=== PATIENT | female | born 1995 | race Caucasian/White ===

== ENCOUNTER 2020-01-12 14:26 | Emergency (ER) | payer BC, SELFPAY ==
--- NOTE | ~2020-01-12 | US_ITS ---
EXAMINATION: US OB <=14 wk fetus w TV DATE: 01/12/2020 15:44 INDICATION: Lower abdominal tenderness at the seventh week of TECHNIQUE: Real-time pelvic ultrasound utilizing both a transvaginal and transabdominal probe was pe rformed. The interpreting radiologist was not present for the study. COMPARISON: None. FINDINGS: The uterus measures 5.9 x 4.3 x 5.9 cm. There is an intrauterine gestational sac. A yolk sac and fet al pole are identified. The crown rump length measures 7 mm, which correlates with an estimated gesta tional age of 6 weeks and 4 days. heart motion is identified measuring 134 beats per minute (bp m) by M-mode Doppler. 4 x 5 x 3 mm hypoechoic subchorionic hematoma at the right inferior margin of t he gestational sac. The right ovary measures 3.6 x 1.8 x 1.7 cm. The left ovary measures 3.0 x 1.5 x 1.4 cm. Normal vascu lar flow with both arterial and venous waveforms at both ovaries. There is no free fluid in the pelvi s. IMPRESSION: 1. Single living fetus with heart rate of 134 bpm. 2. Gestational age by ultrasound of 6 weeks 4 day(s) +/- 4 day(s) with ultrasound estimated date of delivery (CHAS) of 09/02/2020. 3. Very small subchorionic hematoma. Reviewed, dictated and finalized at location A. [facility] DENTIST IMPRESSION: 1. Single living fetus with heart rate of 134 bpm. 2. Gestational age by ultrasound of 6 weeks 4 day(s) +/- 4 day(s) with ultraso und estimated date of delivery (CHAS) of 09/02/2020. 3. Very small subchorionic hematoma.
[2020-01-12 14:47] VITALS: BP 128/82; PULSE 96; RESP 16; TEMP 36.8; O2SAT 99
--- NOTE | 2020-01-12 14:48 | ED.NAVMDI ---
HPI - Nausea/Vomiting/Diarrhea General Chief complaint: Nausea/Vomiting/Diarrhea Stated complaint: /vomiting Time Seen by Provider: 01/12/20 14:33 Source: patient Mode of arrival: ambulatory Limitations: no limitations History of Present Illness HPI Narrative: This is a 24 year old about 7 weeks from LMP that presents to the ER for nausea and vomiting x 2 days. Reports since Friday she has had a lot of problems with nausea. Reports since yesterday she has been having a lot of vomiting. Reports she has been unable to keep anything down. She was told to start vitamin B6 and Unisom and has ordered these medications, but they have not come in yet. Denies fever, abdominal pain, dysuria, hematuria, vaginal bleeding, or pelvic cramping. Related Data Allergies Allergy/AdvReac Type Severity Reaction Status Date / Time No Known Allergies Allergy Verified 01/12/20 15:11 Review of Systems Review of Systems: Narrative: CONSTITUTIONAL: Denies fever GASTROINTESTINAL: Reports nausea and vomiting. Denies abdominal pain GENITOURINARY: Denies dysuria or hematuria. All systems reviewed & are unremarkable except as noted in HPI and below PMFSH Social History Social History (Updated 01/12/20 @ 14:53 by Maricruz Trivedi PA-C) Smoking status: Never smoker Alcohol intake: former Substance use: former Substance use type: marijuana Exam Narrative: Exam Narrative: GENERAL: Well-appearing, well-nourished, and in no acute distress. HEAD: Normocephalic, atraumatic. EYES: EOMI. CHEST: Clear to auscultation. No respiratory distress. No wheezes rales or rhonchi HEART: Regular rate and rhythm. No murmur heard. Normal peripheral pulses. ABDOMEN: Soft, nontender, nondistended, normal active bowel sounds. EXTREMITIES: Normal range of motion. No edema. SKIN: Warm, dry, no rash. NEURO: No focal deficits. Alert and oriented x3. PSYCH: Normal mood and affect Course Consultations Consultation #1: Spoke with Dr. Cui about patient and work-up. She is to follow-up in clinic and call with any further problems Date: 01/12/20 Time: 16:38 Vital Signs Vital signs: Vital Signs Temperature 98.3 F 01/12/20 14:47 Pulse Rate 96 01/12/20 14:47 Respiratory Rate 16 01/12/20 14:47 Blood Pressure 128/82 01/12/20 14:47 Pulse Oximetry 99 01/12/20 14:47 Temperature 98.3 F 01/12/20 14:47 Pulse Rate 88 01/12/20 15:41 Respiratory Rate 16 01/12/20 14:47 Blood Pressure 140/114 H 01/12/20 15:41 Pulse Oximetry 99 01/12/20 14:47 MDM - Nausea/Vomiting/Diarrhea MDM Narrative Medical decision making narrative: Patient presents to the emergency department for nausea and vomiting, about 7 weeks by her last menstrual period. She is afebrile and nontoxic-appearing. She is not orthostatic. CBC with hemoconcentration. 1+ ketones in the urine. Patient was hydrated while in the ED. Metabolic panel is without acute changes. Patient also given Reglan and Benadryl with relief. She was able to tolerate p.o. challenge. OB ultrasound shows a single living fetus with heart rate of 134. Also shows a very small subchorionic hematoma. Patient denies any vaginal bleeding. Spoke with Dr. Cui about patient and work-up. She is to follow-up in clinic and call with any further problems. She will be started on Unisom and vitamin B6. She will be given Reglan as needed. She is to follow-up with OB. Patient was given warnings to return to the ER Lab Data Attestation: I reviewed the patient's lab results. Result diagrams: 01/12/20 14:56 01/12/20 14:56 Labs: Lab Results 01/12/20 01/12/20 01/12/20 Range/Units 14:55 14:56 14:56 WBC 6.8 (4.5-10.0) K/mm3 RBC 5.25 (4.2-5.4) M/mm3 Hgb 15.4 H (12.0-15.0) g/dL Hct 45.9 (37.0-47.0) % MCV 87.4 (80-100) fl MCH 29.3 (26-34) pg MCHC 33.6 (32-36) g/dl RDW 12.9 (11.5-14.5) % Plt Count 312 (150-375) k/mm3 MPV 10.1
[2020-01-12 15:01] LABS: Basophils Percent Auto 0.6 % (0.2-1.2); Eosinophils Percent Auto 0.1 % (0-4.4); Hematocrit 45.9 % (37.0-47.0); Hemoglobin 15.4 g/dL (12.0-15.0); Immature Granulocyte Absolute 0.02 K/mm3 (0.00-0.031); Immature Granulocyte Percent A 0.3 % (0-0.5); Lymphocytes Percent Auto 8.9 % (18.3-44.2); Mean Corpuscular HGB Conc 33.6 g/dl (32-36); Mean Corpuscular Hemoglobin 29.3 pg (26-34); Mean Corpuscular Volume 87.4 fl (80-100); Mean Platelet Volume 10.1 fl (7.4-10.4); Monocytes Absolute Auto 0.5 K/mm3 (0.1-0.6); Monocytes Percent Auto 7.2 % (2.6-8.5); Neutrophils Absolute Auto 5.6 K/mm3 (1.3-6.7); Neutrophils Percent Auto 82.9 % (45.5-73.1); Platelet Count Result 312 k/mm3 (150-375); Red Blood Count 5.25 M/mm3 (4.2-5.4); Red Cell Distribution Width 12.9 % (11.5-14.5); White Blood Count 6.8 K/mm3 (4.5-10.0)
[2020-01-12 15:07] LABS: Add Urine Microscopic? YES; Appearance Urine Clear (Clear); Bacteria Urine Trace /hpf; Bilirubin Urine Negative (Negative); Blood Urine Negative (Negative); Color Urine Yellow (Yellow); Glucose Urine UA Negative (Negative); Ketones Urine 1+ mg/dL (Negative); Leukocyte Esterase Ur Negative LEU/UL (Negative); Mucus Urine Heavy /lpf; Nitrate Urine Negative (Negative); Protein Urine 1+ mg/dL (Negative); Squamous Epithelial Cell Urine Rare /hpf (Few); Urobilinogen Urine Negative mg/dL (<2.0); WBC Urine 0-3 /hpf
[2020-01-12 15:11] LABS: Specific Grav Ur 1.032 (1.001-1.035)
[2020-01-12] MEDS: SODIUM CHLORIDE 0.9% IV 1,000 ML 999 ML IV CONT (15:11)
[2020-01-12] MEDS: METOCLOPRAMIDE HCL INJ 10 MG/2 ML VIAL IV PUSH (15:11)
[2020-01-12 15:15] LABS: Alanine Aminotransferase 28 U/L (4-35); Albumin Level 5.1 g/dL (3.5-5.1); Alkaline Phosphatase 74 U/L (38-126); Aspartate Amino Transferase 35 U/L (14-36); Bilirubin,Total 0.3 mg/dL (0.2-1.3); Blood Urea Nitrogen 9 mg/dL (7-17); Calcium 9.7 mg/dL (8.4-10.2); Carbon Dioxide 22 mmol/L (22-30); Chloride 100 mmol/L (98-107); Estimated Glomerular Filt Rate > 60; Glucose 109 mg/dL (65-105); Lipase 84 U/L (23-300); Potassium 3.4 mmol/L (3.4-5.0); Sodium 138 mmol/L (137-145)
[2020-01-12 15:39] VITALS: BP 144/106; PULSE 77
[2020-01-12 15:40] VITALS: BP 152/103; PULSE 84
[2020-01-12 15:41] VITALS: BP 140/114; PULSE 88
[2020-01-12 17:19] VITALS: BP 110/71; PULSE 72; RESP 16; O2SAT 99
--- NOTE | 2020-01-18 07:54 | PC.NURSE ---
LATE ENTRY This note is being entered to document information to the patient's record. The following information was omitted on [01/12/2020], by [Bello Rios. NS infused at 1609.].
== END 2020-01-12 17:20 | disposition home or self-care (01) ==
PROVIDERS: Physician Assistant; Emergency Provider Emergency Medicine
DX: O21.9 Vomiting of pregnancy, unspecified (principal); Z3A.01 Less than 8 weeks gestation of pregnancy
CPT/HCPCS: 36415; 76801; 76817; 80053; 81001; 81025; 83690; 84702; 85025; 96361; 96374; 96375; 99284; J1200; J2765; J7030

== ENCOUNTER 2020-09-07 05:00 | Inpatient (IN) | payer OTHER, SELFPAY ==
[2020-09-07] VITALS (241 sets, daily range): BP systolic 101–163; BP diastolic 61–103; PULSE 76–122; TEMP 36.3–37.9; O2SAT 96–100; BMI 36.6
--- NOTE | 2020-09-07 05:48 | LDADM ---
This patient, Sharmila Garcia, was admitted to Labor/Delivery/Recovery 105 on 09/07/20 at 05:00. Plans for labor, pain management and were discussed with patient. Patient/family oriented to hospital policies and general routines including ID bracelet, bed and alarms, visiting hours, pain management, procedures, bathroom and other care routines, personal items, smoking policy, room service/diet and guest tray routines, infant security routines, and visiting hours. Patient/Family are encouraged to report perceived risks to care and to ask questions if they do not understand what they are told or what they should do. See OBIX for further documentation.
[2020-09-07] MEDS: LACTATED RINGERS 1,000 ML 125 ML IV CONT ×3 (05:52→17:18)
[2020-09-07] MEDS: OXYTOCIN 30 UNITS/NS 500 ML 30 UNITS/500 ML BAG 6 UNITS IV CONT (05:53)
[2020-09-07 06:07] LABS: Basophils Percent Auto 0.3 % (0.2-1.2); Eosinophils Absolute Auto 0.1 K/mm3 (0-0.3); Eosinophils Percent Auto 1.4 % (0-4.4); Hematocrit 36.6 % (37.0-47.0); Hemoglobin 12.3 g/dL (12.0-15.0); Immature Granulocyte Absolute 0.07 K/mm3 (0.00-0.031); Immature Granulocyte Percent A 0.7 % (0-0.5); Lymphocytes Percent Auto 21.9 % (18.3-44.2); Mean Corpuscular HGB Conc 33.6 g/dl (32-36); Mean Corpuscular Hemoglobin 29.1 pg (26-34); Mean Corpuscular Volume 86.5 fl (80-100); Mean Platelet Volume 10.4 fl (7.4-10.4); Monocytes Absolute Auto 0.7 K/mm3 (0.1-0.6); Monocytes Percent Auto 7.4 % (2.6-8.5); Neutrophils Absolute Auto 6.9 K/mm3 (1.3-6.7); Neutrophils Percent Auto 68.3 % (45.5-73.1); Platelet Count Result 234 k/mm3 (150-375); Red Blood Count 4.23 M/mm3 (4.2-5.4); Red Cell Distribution Width 14.4 % (11.5-14.5)
--- NOTE | 2020-09-07 06:29 | WPDANESEPP ---
Anes - Eval Pre Procedure Procedure: labor epidural Date/Time: 09/07/20 06:29 Surgeon: ilene Pre Op Diagnosis: Induction of Labor Patient Data Age: 25 Gender: F Height: 1.65 m Weight: 100 kg Last Vital Signs Pulse 97 09/07/20 06:15 BP 121/75 09/07/20 06:15 Allergies Allergy/AdvReac Type Severity Reaction Status Date / Time No Known Allergies Allergy Verified 01/12/20 15:11 Home Medications Medication Instructions Recorded Confirmed Type PNV cmb#95-ferrous fumarate-FA 1 tablet PO DAILY 08/03/20 08/03/20 History [] Laboratory Tests 09/07/20 09/07/20 05:42 05:42 WBC 10.0 K/mm3 K/mm3 (4.5-10.0) RBC 4.23 M/mm3 M/mm3 (4.2-5.4) Hgb 12.3 g/dL D g/dL (12.0-15.0) Hct 36.6 % L % (37.0-47.0) MCV 86.5 fl fl (80-100) MCH 29.1 pg pg (26-34) MCHC 33.6 g/dl g/dl (32-36) RDW 14.4 % % (11.5-14.5) Plt Count 234 k/mm3 k/mm3 (150-375) MPV 10.4 fl fl (7.4-10.4) Immature Gran % (Auto) 0.7 % H % (0-0.5) Neut % (Auto) 68.3 % % (45.5-73.1) Lymph % (Auto) 21.9 % % (18.3-44.2) Hemphill % (Auto) 7.4 % % (2.6-8.5) Eos % (Auto) 1.4 % % (0-4.4) Baso % (Auto) 0.3 % % (0.2-1.2) Lymph # (Auto) 2.20 K/mm3 K/mm3 (0.9-3.2) Hemphill # (Auto) 0.7 K/mm3 H K/mm3 (0.1-0.6) Eos # (Auto) 0.1 K/mm3 K/mm3 (0-0.3) Baso # (Auto) 0.0 K/mm3 K/mm3 (0.0-0.1) Abs Immat Gran (auto) 0.07 K/mm3 H K/mm3 (0.00-0.031) Absolute Neuts (auto) 6.9 K/mm3 H K/mm3 (1.3-6.7) Absolute Nucleated RBC 0.0 K/mm3 K/mm3 (0.0-0.012) Nucleated RBC % 0.0 % % (0.0-0.2) RPR Pending Patient hx anesthesia problems: none Family hx anesthesia problems: none PMFSH Family History Family History (Updated 08/03/20 @ 15:39 by Shikha Bowman RN) Other No pertinent family history Social History Social History (Updated 01/12/20 @ 14:53 by Maricruz Trivedi PA-C) Smoking status: Never smoker Alcohol intake: former Substance use: never Substance use type: marijuana Gender identity (if verbalized by the patient): Female Spiritual care concerns: No Exam Day of Procedure 09/07/20 06:29
--- NOTE | 2020-09-07 08:01 | WPDOBADMIT ---
Obstetrics - Admit Note Admission Note: 25 y/o G1 @ 41 weeks for induction of labor. record reviewed. No pertinent additions to the history and/or any subsequent changes in the physical findings that are not consistent with the expected course of the were found. Additions to the history and/or subsequent changes in the physical findings follow. None.
[2020-09-07] MEDS: ONDANSETRON INJ 4 MG/2 ML VIAL IV PUSH (13:07)
[2020-09-07] MEDS: OXYTOCIN 30 UNITS/NS 500 ML 30 UNITS/500 ML BAG 20 UNITS IV CONT (22:42)
[2020-09-07] MEDS: AMPICILLIN 2 GM/NS 100 ML 2 GM/100 ML BAG IVPB (23:10)
[2020-09-08] VITALS (61 sets, daily range): BP systolic 118–149; BP diastolic 58–106; PULSE 87–169; RESP 16–18; TEMP 36.7–37.4; O2SAT 95–100
--- NOTE | 2020-09-08 03:11 | PM.OBPRVD ---
OB - Delivery Note Procedure Delivery date: 09/08/20 Procedure: vaginal delivery Intrapartal events: None Induction method: none Delivery monitor: external FHT and internal FHT Laceration Description: None Delivery repair: vicryl Specimen: No Estimated blood loss (mL): 325 Anesthesia type: Epidural Disposition: other () Baby Date of : 09/08/20 Time of : 02:37 Weeks of gestation at delivery: 41 Infant gender: Female Weight (pounds): 7 Weight (ounces): 3 presentation: vertex position: Left Occiput Anterior Placenta delivery description: Spontaneous cord vessel description: 3 Vessels, Nuchal Cord and Clamped/Cut score one minute: 9 score five minutes: 9 Narrative: mother and baby in stable condition
[2020-09-08] MEDS: OXYTOCIN 30 UNITS/NS 500 ML 30 UNITS/500 ML BAG 125 UNITS IV CONT (03:15)
[2020-09-08] MEDS: WITCH HAZEL 40 PADS 1 PAD TOPICAL (05:08)
[2020-09-08] MEDS: BENZOCAINE 20% AER SPR (*SP) 56 GM CAN 1 SPRAY TOPICAL (05:08)
--- NOTE | 2020-09-08 07:46 | PM.OBPNVD ---
OB - PN: Subj Subjective Date/time seen: 09/08/20 07:46 Patient comments: no complaints baby status: doing well OB - PN: Obj Data Labs CBC & Chem 7: 09/07/20 05:42 OB - PN A/P Time Spent With Patient Time: Total time spent is greater than 50% in coordination of care (as documented) at patient's floor/unit and/or counseling patient:
--- NOTE | 2020-09-08 08:00 | PC.NURSE ---
Consulted with patient, mother states infant has used the nipple shield since first feeding due to flat nipples. has been sleepy with minimal suckling while at breast. Discussed nipple shield precautions and possible complications instructions given on application and cleaning of shield. Patient able to return demonstration on proper application of shield. Discussed the need to initiate pumping if continues to nurse with the shield. Patient verbalizes understanding. Demonstrated stimulation techniques to wake for feeding. Assisted with to breast. Reviewed infant feeding cues, frequencies, duration of feedings, feeding elimination flow sheet, and signs of adequate intake. Reviewed positioning/alignment in cross cradle, holding breast in U hold and guided asymmetrical latch on. Discussed rational for each. was able to latch correctly. Infant made little effort to suckle, short burst of weak sucking a few times within 15 minutes at breast. Reviewed signs of a correct latch, effective nursing and suck swallow ratio. Nipple care reviewed. Attempt for 15 minutes, then mother will supplement and pump.
--- NOTE | 2020-09-08 09:10 | PC.NURSE ---
Breast pump provided due to ineffective feeding/nipple shield use. Instructions given on breast pump care and usage, pumping schedule, nipple care, and collection and storage of breast milk. Encouraged [id number], breast massage and manual expression to stimulate supply. Assessed patient for correct flange size, placement and draw. Patient verbalizes and demonstrates understanding of instructions.
[2020-09-08 09:31] LABS: Rapid Plasma Reagin Non-Reactive (NonReactive)
[2020-09-08] MEDS: IBUPROFEN 600 MG TABLET PO ×2 (10:15→23:15)
[2020-09-08] MEDS: MULTIVIT/MIN/PREN/FOL AC/IRON TABLET 1 TAB PO (10:15)
[2020-09-08] MEDS: DOCUSATE SODIUM 100 MG CAPSULE PO (10:15)
--- NOTE | 2020-09-08 11:31 | PCCCNOTE ---
Care Coordination met with pt. and FOB this morning to discuss discharge planning. Pt.'s current discharge plan is to return home with FOB and baby. Pt. states that this is their first child and that they have everything they need to safely bring baby home. Pt. confirms that have a place for baby to sleep, clothing, diapers, and a car seat. Pt. lives near family who are supportive and can assist if need. Pt. states she will breast feed baby and denies any discharge needs. CC left resources for pt. and FOB. Pt. confirms that she smoked Marijuana prior to finding out she was and that is why she tested positive at one of her visits. Pt. states she did not smoke after that. Pt. and baby were not tested for Marijuana at admission. Pt.and baby are doing well and bonding appropriately. No further need for CC services at this time.
--- NOTE | 2020-09-08 12:05 | PC.NURSE ---
Mother called out for assist with feeding. Demonstrated stimulation techniques to wake for feeding. Assisted with to breast using shield. Reviewed feeding cues, frequencies, duration of feedings, feeding elimination flow sheet, and signs of adequate intake. Reviewed positioning/alignment in cross cradle, holding breast in U hold and guided asymmetrical latch on. Discussed rational for each. was able to latch correctly. made little effort to suckle, short burst of weak sucking a few times within 15 minutes at breast. Reviewed signs of a correct latch, effective nursing and suck swallow ratio. Nipple care reviewed. Attempt for 15 minutes, then mother will supplement and pump.
[2020-09-09 06:16] LABS: Hematocrit 29.1 % (37.0-47.0); Hemoglobin 9.4 g/dL (12.0-15.0)
[2020-09-09 08:30] VITALS: BP 120/77; PULSE 92; RESP 16; TEMP 36.3; O2SAT 97
[2020-09-09] MEDS: DOCUSATE SODIUM 100 MG CAPSULE PO ×2 (08:36→16:52)
[2020-09-09] MEDS: POLYSACCHARIDE IRON COMPLEX 150 MG CAPSULE PO ×2 (08:37→16:52)
[2020-09-09] MEDS: IBUPROFEN 600 MG TABLET PO ×2 (08:37→16:52)
[2020-09-09] MEDS: MULTIVIT/MIN/PREN/FOL AC/IRON TABLET 1 TAB PO (08:38)
--- NOTE | 2020-09-09 08:39 | WPDANLDPN2 ---
Anes-Prog Note L&D Date/Time: 09/09/20 08:39 Comfortable throughout: labor and delivery Neuraxial method: epidural Epidural/Spinal procedure site: clean & non-tender Neuro status: Neuro function grossly intact. Cardiovascular status: normal Respiratory status: normal Airway patency: baseline Mental status: baseline Post-Op hydration status: normal Vital Signs: Last Vital Signs Temp 36.7 C 09/08/20 19:10 Pulse 106 H 09/08/20 19:10 Resp 16 09/08/20 19:10 BP 136/86 09/08/20 19:10 Pulse Ox 98 09/08/20 07:25 Pain score (VAS): 0/10 Post-procedural complaints: none Patient feedback: Patient satisfied with anesthetic care.
--- NOTE | 2020-09-09 12:31 | PM.OBPNVD ---
OB - PN: Subj Subjective Date/time seen: 09/09/20 12:31 Patient comments: no complaints, pain well controlled, incisional pain, tolerating diet and flatus present OB - PN: Obj Data Labs CBC & Chem 7: 09/09/20 04:47 Labs: Laboratory Results - last 24 hr 09/09/20 04:47 Hgb 9.4 L Hct 29.1 L OB - PN A/P Plan day: 1 Plan: routine care Comments: No problems, routine care Time Spent With Patient Time: Total time spent is greater than 50% in coordination of care (as documented) at patient's floor/unit and/or counseling patient: Exam Const: General: comfortable, no acute distress and alert Resp: Effort & Inspection: normal respiratory effort Auscultation: no crackles, no rales and no rhonchi Cardio: Rate: regular rate Heart sounds: no click, no murmurs and no rubs GI: Inspection: non-distended GI Palp: No Tenderness to palpation present (GI) Auscultation: normal bowel sounds Other: Incision - CDI Extrem: General: normal to inspection, no pedal edema and no calf tenderness
[2020-09-09] MEDS: TETANUS,DIPHTHERIA,AC PERTUSSIS ADULT (0.5 ML) BOOSTRIX IM (13:27)
[2020-09-09] MEDS: WITCH HAZEL 40 PADS 1 PAD TOPICAL (16:51)
[2020-09-09] MEDS: BENZOCAINE 20% AER SPR (*SP) 56 GM CAN 1 SPRAY TOPICAL (16:52)
[2020-09-09 19:40] VITALS: BP 123/79; PULSE 88; RESP 16; TEMP 36.3; O2SAT 98
--- NOTE | 2020-09-10 06:23 | PC.NURSE ---
09/09/2020 at 2200 Patient viewed the discharge video Mother & Baby Care, The First Two Weeks . Patient was given the opportunity and encouraged to ask questions. Patient verbalized understanding of information shared and has been given the mother/baby guide for home reference.
[2020-09-10 09:00] VITALS: BP 135/88; PULSE 97; RESP 16; TEMP 37.2; O2SAT 99
[2020-09-10] MEDS: DOCUSATE SODIUM 100 MG CAPSULE PO (10:12)
[2020-09-10] MEDS: MULTIVIT/MIN/PREN/FOL AC/IRON TABLET 1 TAB PO (10:12)
[2020-09-10] MEDS: IBUPROFEN 600 MG TABLET PO (10:12)
[2020-09-10] MEDS: POLYSACCHARIDE IRON COMPLEX 150 MG CAPSULE PO (10:12)
--- NOTE | 2020-09-10 11:42 | PM.OBPNVD ---
OB - PN: Subj Subjective Date/time seen: 09/10/20 11:42 Patient comments: no complaints, pain well controlled and tolerating diet OB - PN: Obj Data Labs CBC & Chem 7: 09/09/20 04:47 OB - PN A/P Plan day: 2 Plan: routine care and discharge home Time Spent With Patient Time: Total time spent is greater than 50% in coordination of care (as documented) at patient's floor/unit and/or counseling patient: Exam Const: General: comfortable and no acute distress Resp: Effort & Inspection: normal respiratory effort Auscultation: no rales, no rhonchi and no wheezes Cardio: Rate: regular rate Heart sounds: no click, no murmurs and no rubs GI: GI Palp: Yes Soft to palpation and No Tenderness to palpation present (GI) Auscultation: normal bowel sounds Extrem: General: normal to inspection, no pedal edema and no calf tenderness
--- NOTE | 2020-09-10 11:42 | PM.OBDSVD ---
DS: Admitting Diagnosis Admitting Diagnosis Admitting Diagnosis: Induction of Labor DS: Discharge Diagnosis Discharge Diagnosis (1) Term delivered: Code(s): O80 - Encounter for full-term uncomplicated delivery Status: Acute OB - DS: Summary OB Procedures : None OB Procedures Intrapartum: Spontaneous Vag Delivery OB Procedures: : None Peripartum Data Delivery Method: Natural Vaginal complications: none Time Spent with Patient Time attestation: Total time spent providing and/or coordinating discharge services: Discharge Plan Discharge Discharging Clinician: Jean Cui Patient Disposition: Home, Self-Care Activity: pelvic rest Diet: regular Patient Instructions: Antibiotic Form Stand Alone Forms: General Discharge Information Follow-up/Referrals: Jean Cui MD [Physician] - Discharge Medications: Continued PNV cmb#95-ferrous fumarate-FA [] 28 mg iron- 800 mcg Tablet 1 tablet PO DAILY RF: 0 Date of admission: 09/07/20 05:00 Primary Care Provider: PHYSICIAN,DRY KILN FEEDER Admitting Provider: Jean Cui Attending physician on admission: Jean Cui
[2020-09-11 09:29] VITALS: BP 137/86; PULSE 97; RESP 20; TEMP 36.7; O2SAT 100
== END 2020-09-10 12:40 | disposition home or self-care (01) | DRG 807 ==
LOC: ANHLDR 05:12 → ANHOB2 09-08 05:42
PROVIDERS: Advanced Practice Midwife; Admitting Provider Obstetrics & Gynecology; Visit Provider Obstetrics & Gynecology
DX: O69.81X0 Labor and delivery complicated by cord around neck, without compression, not applicable or unspecified (principal); Z37.0 Single live birth; Z3A.41 41 weeks gestation of pregnancy; Z23 Encounter for immunization
CPT/HCPCS: 36415; 85014; 85018; 85025; 86592; 86850; 86900; 86901; 90471; 90653; 90715; A9270; G0008; J0131; J0290; J2405; J2590; J2795; J7120

== ENCOUNTER 2021-09-02 18:58 | Emergency (ER) | payer OTHER, SELFPAY ==
[2021-09-02 19:25] VITALS: BP 141/79; PULSE 77; RESP 16; TEMP 37.1; O2SAT 100
--- NOTE | 2021-09-02 20:43 | PC.NURSE ---
Pt reports 8 weeks and c/o back pain that started when she got up from chair at breakfast restaurant. worse with movement. denies any urinary s/s like frequency, burning, urgency. 2nd . reports pain in all across lower back and feels tight like spasms.
--- NOTE | 2021-09-02 20:52 | ED.BACK ---
HPI - Back Pain/Injury General Chief Complaint: Back Pain/Injury Stated Complaint: back pain, 8 weeks Time Seen by Provider: 09/02/21 20:38 Source: patient and family Mode of arrival: ambulatory Limitations: no limitations History of Present Illness HPI Narrative: Patient is 26 years old white female, 8 weeks scheduled to see her INTERVENTIONAL CARDIOLOGIST in 3 days per patient is 2, para 1, 0, does not take medicine at home. Woke up this morning with lower back pain. Patient denies any recent trauma or new physical activity. Pain gets better on Tylenol, gets worse with bending, lifting or doing physical activity. Patient denies any fever, chills, nausea, vomiting. Patient denies radiation of pain. Patient denies any vaginal bleeding or discharge or urinary symptoms. Related Data Home Medications Medication Instructions Recorded Confirmed PNV cmb#95-ferrous fumarate-FA 1 tablet PO DAILY 08/03/20 08/03/20 [] Allergies Allergy/AdvReac Type Severity Reaction Status Date / Time Sulfa (Sulfonamide Allergy Unknown Verified 09/07/20 23:11 Antibiotics) Review of Systems Review of Systems: CONSTITUTIONAL: Denies fever, chills, or sweats. EYES: Denies visual changes, redness, or discharge. ENT: Denies rhinorrhea, congestion, sore throat, or otalgia. CARDIOVASCULAR: Denies chest pain, palpitations, or edema. RESPIRATORY: Denies cough or dyspnea. GASTROINTESTINAL: Denies abdominal pain, nausea, vomiting, or diarrhea. GENITOURINARY: Denies dysuria or hematuria. SKIN: Denies rash or itching. MUSCULOSKELETAL: Denies back pain, joint pain, or myalgia. NEUROLOGIC: Denies headache, numbness, or weakness. PSYCHIATRIC: Denies anxiety or depression. PMFSH Family History Family History Other No pertinent family history Social History Social History Smoking status: Never smoker Alcohol intake: former Substance use: never Substance use type: marijuana Gender identity (if verbalized by the patient): Female Spiritual care concerns: No Exam Narrative: General appearance: Well-developed, well-nourished Skin: Normal color Head: Normocephalic, nontraumatic Eyes: Clear conjunctiva ENT: Oropharynx normal, ears normal, nose normal Neck: Supple, nontender Chest and respiratory: Airway patent, no respiratory distress, no accessory muscle use Heart: Regular rate/rhythm Abdomen: Soft, nontender, no organomegaly, quiet bowel sounds Vascular: Normal peripheral pulses, normal capillary refill. Musculoskeletal: Lower back showed no bruises, no swelling, no rash, no tenderness with palpation. Pain triggered by bending over. Or moving her trunk to the right or to the left. Neurologic: Alert and oriented ?3, ALIGNMENT MECHANIC is normal as tested, no gross motor deficit Course Course Emergency Course: Stable Vital Signs Vital signs: Vital Signs Temperature 37.1 C 09/02/21 19:25 Pulse Rate 77 09/02/21 19:25 Respiratory Rate 16 09/02/21 19:25 Blood Pressure 141/79 H 09/02/21 19:25 Pulse Oximetry 100 09/02/21 19:25 Temperature 37.1 C 09/02/21 19:25 Pulse Rate 77 09/02/21 19:25 Respiratory Rate 16 09/02/21 19:25 Blood Pressure 141/79 H 09/02/21 19:25 Pulse Oximetry 100 09/02/21 19:25 MDM - Back Pain/Injury MDM Narrative Medical decision making narrative: 8 weeks , lower back pain. Probably related symptoms, musculoskeletal is my concern. UA ordered Differential Diagnosis Differential diagnosis: Likely strain of lumbar region Lab Data Labs: Lab Results 09/02/21 Range
[2021-09-02 21:39] LABS: Add Urine Microscopic? YES; Appearance Urine Cloudy (Clear); Bacteria Urine Trace /hpf; Bilirubin Urine Negative (Negative); Blood Urine Negative (Negative); Color Urine Yellow (Yellow); Glucose Urine UA Negative (Negative); Ketones Urine Trace mg/dL (Negative); Leukocyte Esterase Ur 3+ LEU/UL (Negative); Mucus Urine Few /lpf; Nitrate Urine Negative (Negative); Protein Urine 1+ mg/dL (Negative); Specific Grav Ur 1.021 (1.001-1.035); Squamous Epithelial Cell Urine Many /hpf (Few); Urobilinogen Urine Negative mg/dL (<2.0); WBC Urine 31-50 /hpf
[2021-09-02] MEDS: AMOXICILLIN 500 MG CAPSULE PO (22:14)
[2021-09-02 22:16] VITALS: BP 128/86; PULSE 82; RESP 18; TEMP 37.1; O2SAT 100
== END 2021-09-02 22:19 | disposition home or self-care (01) ==
PROVIDERS: Emergency Provider Emergency Medicine
DX: O23.41 Unspecified infection of urinary tract in pregnancy, first trimester (principal); N39.0 Urinary tract infection, site not specified; O26.891 Other specified pregnancy related conditions, first trimester; M54.50 Low back pain, unspecified; Z3A.08 8 weeks gestation of pregnancy
CPT/HCPCS: 81001; 87086; 87088; 99283; A9270

== ENCOUNTER 2022-04-15 06:06 | Inpatient (IN) | payer OTHER, SELFPAY ==
[2022-04-15] VITALS (191 sets, daily range): BP systolic 94–135; BP diastolic 44–87; PULSE 77–124; TEMP 36.1–36.6; O2SAT 95–100; BMI 36.6
--- OUTSIDE RECORDS SUMMARY | 2022-04-15 06:11 | XMS_ITS | Encounter Summary ---
:1995 Author Reason for Visit OB visit OB [id number] EDC 04/21/2022 LMP 07/10/2021 Assessment and Plan Assessment Note Patient is ___weeks . Discussed plan. 1. Routine care Discussion Note: None recorded.Patient educational handouts: No information available. Plan of Care Reminders Provider Appointments None recorded. ? ? Lab None recorded. ? ? Referral None recorded. ? ? Procedures None recorded. ? ? Surgeries None recorded. ? ? Imaging None recorded. ? ? Medications Name Start Date ? ? + DHA ? Medications Administered None recorded. Vitals Height Weight BMI Blood Pressure 5 ft 5 in 225 lbs 37.4 kg/m2 123/79 mm[Hg] Results Lab Results None recorded. Allergies Code Code System Name Reaction Severity Onset Sulfa (Sulfonamide Antibiotics) ? ? ? Problems Name Status Onset Date Source ? Bacterial Vaginosis Active 03/02/2021 ? Active 10/02/2021 ? Procedures Date Name Performed by ? 03/20/2022 US, Obstetric, Follow-up [facility] [address] [place] [address] (Work Place) Vaccine List None recorded. Social History Tobacco Smoking Status Former Smoker What type of diet are you following? REGULAR Do you have difficulty walking or climbing N stairs? Are you able to walk? YESWOR
--- OUTSIDE RECORDS SUMMARY | 2022-04-15 06:11 | XMS_ITS | Encounter Summary ---
:1995 Author Reason for Visit OB visit OB [id number] EDC 04/21/2022 LMP 07/10/2021 Assessment and Plan Assessment Note Patient is __35_weeks . Discuss ed plan. 1. Routine care Discussion Note: None [...] BMI Blood Pressure 5 ft 5 in 223 lbs 37.1 kg/m2 123/84 mm[Hg] Results Lab Results None recorded. Allergies Code Code System Name Reaction Severity Onset Sulfa (Sulfonamide Antibiotics) ? ? ? Problems Name Status Onset Date Source ? Bacterial Vaginosis Active 03/02/2021 ? Active 10/02/2021 ? Procedures Date Name Performed by ? 02/19/2022 US, Obstetric, Follow-up [facility] [address] [place] [address] (Work [address]) 03/20/2022 US, Obstetric, Follow-up [facility] [address] [place] [address] ([address]) Vaccine List None recorded. Social History
--- OUTSIDE RECORDS SUMMARY | 2022-04-15 06:11 | XMS_ITS | Encounter Summary ---
:1995 Author Reason for Visit OB visit OB [id number] EDC 04/21/2022 LMP 07/10/2021 Assessment and Plan Assessment Note Patient is 32 . Discussed plan. 1. Routine care Discussion [...] BMI Blood Pressure 5 ft 5 in 224 lbs 37.3 kg/m2 110/78 mm[Hg] Results Lab Results None recorded. Allergies Code Code System Name Reaction Severity Onset Sulfa (Sulfonamide Antibiotics) ? ? ? Problems Name Status Onset Date Source ? Bacterial Vaginosis Active 03/02/2021 ? Active 10/02/2021 ? Procedures Date Name Performed by ? 02/19/2022 US, Obstetric, Follow-up [facility] [address] [place] [address] (Work [address]) Vaccine List None recorded. Social History Tobacco Smoking Status Former Smoker What type of diet are you following? REGULAR Do you have difficulty walking or climbing N stairs? Are you able to walk? [id number]
--- OUTSIDE RECORDS SUMMARY | 2022-04-15 06:11 | XMS_ITS | Encounter Summary ---
:1995 Author Reason for Visit OB visit OB [id number] EDC 04/21/2022 LMP 07/10/2021 Assessment and Plan Assessment Note Patient is _36__weeks . Discuss ed plan. 1. Routine care [...] ft 5 in 225 lbs 37.4 kg/m2 118/71 mm[Hg] Results Lab Results None recorded. Allergies Code Code System Name Reaction Severity Onset Sulfa (Sulfonamide Antibiotics) ? ? ? Problems Name Status Onset Date Source ? Bacterial Vaginosis Active 03/02/2021 ? Active 10/02/2021 ? Procedures Date Name Performed by ? 03/20/2022 US, Obstetric, Follow-up [place] [address] [place] [address] (Work Place) Vaccine List None recorded. Social History Tobacco Smoking Status Former Smoker What type of diet are you following? REGULAR Do you have difficulty walking or climbing N stairs? Are you able to walk? YESW
--- OUTSIDE RECORDS SUMMARY | 2022-04-15 06:11 | XMS_ITS | Encounter Summary ---
:1995 Author Reason for Visit None recorded. Assessment and Plan 1. Uterine size for dates discrepancy ? US, obstetric, follow-up Discussion Note: None recorded.Patient educational handouts: No information available. Plan of Care Reminders Provider Appointments None recorded. ? ? Lab None recorded. ? ? Referral None recorded. ? ? Procedures None recorded. ? ? Surgeries None recorded. ? ? Imaging US, Obstetric, Follow-up 02/19/2022 Jaqui gatica Medications Name Start Date ? ? + DHA ? Medications Administered None recorded. Vitals None recorded. Results Lab Results None recorded. Allergies Code Code System Name Reaction Severity Onset Sulfa (Sulfonamide Antibiotics) ? ? ? Problems Name Status Onset Date Source ? Bacterial Vaginosis Active 03/02/2021 ? Active 10/02/2021 ? Procedures Date Name Performed by ? 01/25/2022 US, Obstetric, Follow-up [place] [address] [place] [address] (Work [address]) 02/19/2022 , Obstetric, Follow-up [place] [address] [place] [address] (Work [address]) Vaccine List None recorded. Social History Tobacco Smoking Status Former Smoker What type of diet are you following? REGULAR Do you have difficulty walking or climbing N stairs?
--- OUTSIDE RECORDS SUMMARY | 2022-04-15 06:11 | XMS_ITS | Encounter Summary ---
:1995 Author Reason for Visit OB visit OB [id number] EDC 04/21/2022 lmp 07/10/2021 Assessment and Plan Assessment Note Patient is 38___weeks . Discuss ed plan. 1. Routine care [...] ft 5 in 225 lbs 37.4 kg/m2 127/84 mm[Hg] Results Lab Results None recorded. Allergies Code Code System Name Reaction Severity Onset Sulfa (Sulfonamide Antibiotics) ? ? ? Problems Name Status Onset Date Source ? Bacterial Vaginosis Active 03/02/2021 ? Active 10/02/2021 ? Procedures Date Name Performed by ? 03/20/2022 US, Obstetric, Follow-up [place] [address] [place] [address] (Work Place) Vaccine List None recorded. Social History Tobacco Smoking Status Former Smoker What type of diet are you following? REGULAR Do you have difficulty walking or climbing N stairs? Are you able to walk? YESW
--- OUTSIDE RECORDS SUMMARY | 2022-04-15 06:11 | XMS_ITS | Encounter Summary ---
:1995 Author Reason for Visit None recorded. Assessment and Plan 1. Large for gestation age fetus ? US, obstetric, follow-up Discussion Note: None recorded.Patient educational handouts: No information available. Plan of Care Reminders Provider Appointments None recorded. ? ? Lab None recorded. ? ? Referral None recorded. ? ? Procedures None recorded. ? ? Surgeries None recorded. ? ? Imaging US, Obstetric, Follow-up 03/20/2022 Jaqui gatica Medications Name Start Date ? ? + DHA ? Medications Administered None recorded. Vitals None recorded. Results Lab Results None recorded. Allergies Code Code System Name Reaction Severity Onset Sulfa (Sulfonamide Antibiotics) ? ? ? Problems Name Status Onset Date Source ? Bacterial Vaginosis Active 03/02/2021 ? Active 10/02/2021 ? Procedures Date Name Performed by ? 02/19/2022 , Obstetric, Follow-up [place] [address] [place] [address] ([address]) 03/20/2022 , Obstetric, Follow-up [place] [address] [place] [address] (Work [address]) Vaccine List None recorded. Social History Tobacco Smoking Status Former Smoker What type of diet are you following? REGULAR Do you have difficulty walking or climbing N stairs?
--- OUTSIDE RECORDS SUMMARY | 2022-04-15 06:11 | XMS_ITS ---
:1995 Author Care Team Providers Name Role Phone Lexie Romo Primary Care Provider Unavailable Allergies Code Code System Name Reaction Severity Status Onset Sulfa (Sulfonamide Antibiotics) ? ? Active ? Medications Name Status Start Date Stop Date ? ? amoxicillin 875 mg tablet Completed ? 2020 fluconazole 200 mg tablet Completed ? 2020 Lo Loestrin Fe 1 mg-10 mcg (24)/10 mcg (2) tablet Completed 06/02/2012 08/21/2015 take 1 tablet by oral route every day metoclopramide 5 mg disintegrating tablet Completed ? 03/16/2020 metronidazole 0.75 % vaginal gel Completed ? 09/04/2021 Completed ? 03/02/2021 + DHA Active ? Not available terconazole 0.4 % vaginal cream Completed ? 02/19/2022 TriNessa (28) 0.18 mg(7)/0.215 mg(7)/0.25 mg(7)-35 mcg table t Completed 03/12/2019 01/24/2021 TAKE 1 TABLET BY MOUTH EVERY DAY Zithromax 500 mg tablet Completed 02/16/2018 03/12/20 19 take 2 tablet by oral route once Problems Name Status Onset Date Source ? Oral Contraception Unknown 08/23/2011 History Education about Sexually Transmitted Disease Prevention Unknown 08/23/2011 History Adult Health Examination Unknown 06/13/2014 History Test Negative Unknown 06/13/2014 History Venereal Disease Screening Unknown 06/13/2014 Histo ry Specialized Medical Examination Unknown 06/13/2014 History Specialized Medical Examination Unknown 06/13/2014 History Screening for Malignant Neoplasm of Cervix Unknown 08/21 History Syphilis Test Finding Unknown 08/21/[address] Concept Unknown 10/18/2016 History Infection Screening Unknown 02/11/2018 History Chlamydial Vulvovaginitis Unknown 03/18/2018
--- OUTSIDE RECORDS SUMMARY | 2022-04-15 06:11 | XMS_ITS | Encounter Summary ---
:1995 Author Reason for Visit OB visit [id number] CHAS 04/21/2022 Assessment and Plan Assessment Note Patient is __31_weeks . Discuss ed plan. 1. Routine care [...] BMI Blood Pressure 5 ft 5 in 219 lbs 36.4 kg/m2 116/79 mm[Hg] Results Lab Results None recorded. Allergies Code Code System Name Reaction Severity Onset Sulfa (Sulfonamide Antibiotics) ? ? ? Problems Name Status Onset Date Source ? Bacterial Vaginosis Active 03/02/2021 ? Active 10/02/2021 ? Procedures Date Name Performed by ? 01/25/2022 US, Obstetric, Follow-up [place] [address] [place] [address] ([address]) 02/19/2022 US, Obstetric, Follow-up [place] [address] [place] [address] (Work [address]) Vaccine List None recorded. Social History
--- OUTSIDE RECORDS SUMMARY | 2022-04-15 06:12 | XMS_ITS | Encounter Summary ---
[...] recorded. ? ? Imaging US, Obstetric, Follow-up 01/25/2022 Jaqui gatica Medications Name Start Date ? ? + DHA ? Medications Administered None recorded. Vitals None recorded. Results Lab Results None recorded. Allergies Code Code System Name Reaction Severity Onset Sulfa (Sulfonamide Antibiotics) ? ? ? Problems Name Status Onset Date Source ? Bacterial Vaginosis Active 03/02/2021 ? Active 10/02/2021 ? Procedures Date Name Performed by ? 01/25/2022 US, Obstetric, Follow-up [place] [address] [place] [address] ([address]) Vaccine List None recorded. Social History Tobacco Smoking Status Former Smoker What type of diet are you following? REGULAR Do you have difficulty walking or climbing N stairs? Are you able to walk? YESWOREST Has tobacco cessation counseling been provided? N Are you able to care for yourself? Y Have you used IV drugs? N Are you blind or do you
--- OUTSIDE RECORDS SUMMARY | 2022-04-15 06:12 | XMS_ITS | Encounter Summary ---
:1995 Author Reason for Visit OB visit OB [id number] EDC 04/21/2022 LMP 07/10/2021 Assessment and Plan Assessment Note Patient is _29__weeks . Discuss ed plan. 1. Routine care [...] BMI Blood Pressure 5 ft 5 in 216 lbs 35.9 kg/m2 120/80 mm[Hg] Results Lab Results None recorded. Allergies Code Code System Name Reaction Severity Onset Sulfa (Sulfonamide Antibiotics) ? ? ? Problems Name Status Onset Date Source ? Bacterial Vaginosis Active 03/02/2021 ? Active 10/02/2021 ? Procedures Date Name Performed by ? 01/25/2022 US, Obstetric, Follow-up [place] [address] [place] [address] (Work [address]) Vaccine List None recorded. Social History Tobacco Smoking Status Former Smoker What type of diet are you following? REGULAR Do you have difficulty walking or climbing N stairs? Are you able to walk? YES
--- OUTSIDE RECORDS SUMMARY | 2022-04-15 06:12 | XMS_ITS | Encounter Summary ---
:1995 Author Reason for Visit OB visit ob [id number] EDC 04/21/2022 LMP 06/20/2021 Assessment and Plan Assessment Note Patient is __27_weeks . Discuss ed plan. 1. Routine care [...] BMI Blood Pressure 5 ft 5 in 215 lbs 35.8 kg/m2 107/70 mm[Hg] Results Lab Results None recorded. Allergies Code Code System Name Reaction Severity Onset Sulfa (Sulfonamide Antibiotics) ? ? ? Problems Name Status Onset Date Source ? Bacterial Vaginosis Active 03/02/2021 ? Active 10/02/2021 ? Procedures Date Name Performed by ? 01/25/2022 US, Obstetric, Follow-up [place] [address] [place] [address] (Work [address]) Vaccine List None recorded. Social History Tobacco Smoking Status Former Smoker What type of diet are you following? REGULAR Do you have difficulty walking or climbing N stairs? Are you able to walk? YESW
[2022-04-15] MEDS: AMPICILLIN 2 GM/NS 100 ML 2 GM/100 ML BAG IVPB (06:51)
[2022-04-15] MEDS: LACTATED RINGERS 1,000 ML 125 ML IV CONT ×3 (06:51→19:00)
[2022-04-15] MEDS: OXYTOCIN 30 UNITS/NS 500 ML 30 UNITS/500 ML BAG IV CONT (06:51)
--- NOTE | 2022-04-15 06:58 | LDADM ---
This patient, Sharmila Garcia, was admitted to Labor/Delivery/Recovery 106 on 04/15/22 at 06:06. Plans for labor, pain management and were discussed with patient. Patient/family oriented to hospital policies and general routines including ID bracelet, bed and alarms, visiting hours, pain management, procedures, bathroom and other care routines, personal items, smoking policy, room service/diet and guest tray routines, security routines, and visiting hours. Patient/Family are encouraged to report perceived risks to care and to ask questions if they do not understand what they are told or what they should do. See OBIX for further documentation.
[2022-04-15 06:59] LABS: Basophils Percent Auto 0.5 % (0.2-1.2); Eosinophils Absolute Auto 0.1 K/mm3 (0-0.3); Eosinophils Percent Auto 1.4 % (0-4.4); Hematocrit 33.6 % (37.0-47.0); Hemoglobin 10.9 g/dL (12.0-15.0); Immature Granulocyte Absolute 0.04 K/mm3 (0.00-0.031); Immature Granulocyte Percent A 0.5 % (0-0.5); Lymphocytes Absolute Auto 2.01 K/mm3 (0.9-3.2); Mean Corpuscular HGB Conc 32.4 g/dl (32-36); Mean Corpuscular Hemoglobin 26.5 pg (26-34); Mean Corpuscular Volume 81.6 fl (80-100); Mean Platelet Volume 10.6 fl (7.4-10.4); Monocytes Absolute Auto 0.6 K/mm3 (0.1-0.6); Monocytes Percent Auto 7.5 % (2.6-8.5); Neutrophils Absolute Auto 5.3 K/mm3 (1.3-6.7); Neutrophils Percent Auto 65.1 % (45.5-73.1); Platelet Count Result 183 k/mm3 (150-375); Red Blood Count 4.12 M/mm3 (4.2-5.4); Red Cell Distribution Width 14.4 % (11.5-14.5); White Blood Count 8.1 K/mm3 (4.5-10.0)
--- NOTE | 2022-04-15 08:45 | P.PNAN_ITS ---
Anes - Eval Pre Procedure Procedure: labor epidural Date/Time: 04/15/22 08:45 Preop Diagnosis: labor pain Pre Op Diagnosis: Induction Patient Data Age: 26 Gender: F Height: 1.65 m Weight: 100 kg Last Vital Signs Pulse 94 04/15/22 08:31 BP 107/62 04/15/22 08:31 O2 Del Method Room Air 04/15/22 06:57 Allergies Allergy/AdvReac Type Severity Reaction Status Date / Time Sulfa (Sulfonamide Allergy Unknown Verified 03/23/22 15:37 Antibiotics) Home Medications Medication Instructions Recorded Confirmed Type vit no.95-ferrous 1 tablet PO DAILY 08/03/20 04/15/22 History fumarate 28 mg-folic acid 800 mcg tablet () Laboratory Tests 04/15/22 04/15/22 04/15/22 06:47 06:47 06:47 WBC 8.1 K/mm3 K/mm3 (4.5-10.0) RBC 4.12 M/mm3 L M/mm3 (4.2-5.4) Hgb 10.9 g/dL L g/dL (12.0-15.0) Hct 33.6 % L % (37.0-47.0) MCV 81.6 fl fl (80-100) MCH 26.5 pg pg (26-34) MCHC 32.4 g/dl g/dl (32-36) RDW 14.4 % % (11.5-14.5) Plt Count 183 k/mm3 k/mm3 (150-375) MPV 10.6 fl H fl (7.4-10.4) Immature Gran % (Auto) 0.5 % % (0-0.5) Neut % (Auto) 65.1 % % (45.5-73.1) Lymph % (Auto) 25.0 % % (18.3-44.2) [place] % (Auto) 7.5 % % (2.6-8.5) Eos % (Auto) 1.4 % % (0-4.4) Baso % (Auto) 0.5 % % (0.2-1.2) Lymph # (Auto) 2.01 K/mm3 K/mm3 (0.9-3.2) [place] # (Auto) 0.6 K/mm3 K/mm3 (0.1-0.6) Eos # (Auto) 0.1 K/mm3 K/mm3 (0-0.3) Baso # (Auto) 0.0 K/mm3 K/mm3 (0.0-0.1) Abs Immat Gran (auto) 0.04 K/mm3 H K/mm3 (0.00-0.031) Absolute Neuts (auto) 5.3 K/mm3 K/mm3 (1.3-6.7) Absolute Nucleated RBC 0.0 K/mm3 K/mm3 (0.0-0.012) Nucleated RBC % 0.0 % % (0.0-0.2) RPR Pending Blood Type O Positive Antibody Screen Negative Patient hx anesthesia problems: none Family hx anesthesia problems: none Results Review: All pre-operative results and documents have been reviewed as part of the pre- operative evaluation. [facility] Family History Family History (Updated 03/23/22 @ 15:39 by Danika Maldonado RN) Mother Hypertension Social History Social History Smoking status: Never smoker Alcohol intake: former Substance use: never Substance use type: marijuana Gender identity (if verbalized by the patient): Female Spiritual care concerns: No Exam Day of Procedure 04/15/22 08:45
--- NOTE | 2022-04-15 09:10 | WPDOBADMIT ---
Obstetrics - Admit Note Admission Note: record reviewed. No pertinent additions to the history and/or any subsequent changes in the physical findings that are not consistent with the expected course of the were found. elective IOL. SVE 1.5/60/-2 AROM minimal of clear odorless fluid. Anticipate vaginal delivery. GBS Positive. Additions to the history and/or subsequent changes in the physical findings follow. None.
[2022-04-15] MEDS: AMPICILLIN 1 GM/NS 50 ML 1 GM/50 ML BAG IVPB ×4 (11:09→23:12)
[2022-04-15] MEDS: ONDANSETRON INJ 4 MG/2 ML VIAL IV PUSH (19:00)
[2022-04-16] VITALS (20 sets, daily range): BP systolic 115–137; BP diastolic 44–87; PULSE 82–106; RESP 16–18; TEMP 36.4–37.4; O2SAT 97–99
--- NOTE | 2022-04-16 | P.PCNOB_ITS ---
OB - Delivery Note Procedure Delivery date: 04/15/22 Procedure: Vaginal delivery Events: Elective Induction of Labor and Positive Group B Strep (GBS) Induction method: AROM and Per Pitocin Protocol Delivery monitor: External FHT, External Uterine and Internal Uterine Route of delivery: Episiotomy description: None Laceration Description: Perineal - 2nd Degree Delivery repair: vicryl Specimen: No Quantitative Blood Loss (ml): 205 Anesthesia type: Epidural Disposition: Floor [place] Baby Date of : 04/15/22 Time of : 23:37 Weeks of gestation at delivery: 39 gender: Male Weight (pounds): 8 Weight (ounces): 15 presentation: vertex position: Left Occiput Anterior Placenta delivery description: Spontaneous Cord Vessel Description: 3 Vessels score one minute: 9 score five minutes: 9 Narrative: Mom and baby skin to skin in stable condition.
[2022-04-16] MEDS: OXYTOCIN 30 UNITS/NS 500 ML 30 UNITS/500 ML BAG 125 UNITS IV CONT (00:03)
[2022-04-16] MEDS: WITCH HAZEL 40 PADS 1 PAD TOPICAL (03:09)
[2022-04-16] MEDS: IBUPROFEN 600 MG TABLET PO ×3 (03:09→15:38)
[2022-04-16] MEDS: BENZOCAINE 20% AER SPR (*SP) 56 GM CAN 1 SPRAY TOPICAL (03:09)
--- NOTE | 2022-04-16 05:36 | PC.NURSE ---
04/16/2022 at 0339 Patient transferred to post room #281. Support person present. Oriented to unit, room, information board, rooming in, admission packet and security measures. Patient verbalizes understanding.
--- NOTE | 2022-04-16 07:31 | PM.OBPNVD ---
OB - PN: Subj Subjective Date/time seen: 04/16/22 07:31 Patient comments: no complaints, pain well controlled, incisional pain, tolerating diet and flatus present OB - PN: Obj Data Labs CBC & Chem 7: 04/15/22 06:47 Labs: Laboratory Results - last 24 hr 04/15/22 06:47 Blood Type O Positive Antibody Screen Negative OB - PN A/P Plan day: 1 Plan: routine care Comments: No problems, routine care Time Spent With Patient Time: Total time spent is greater than 50% in coordination of care (as documented) at patient's floor/unit and/or counseling patient: Exam Const: General: comfortable, no acute distress and alert Resp: Effort & Inspection: normal respiratory effort Auscultation: no crackles, no rales and no rhonchi Cardio: Rate: regular rate Heart sounds: no click, no murmurs and no rubs GI: Inspection: non-distended GI Palp: No Tenderness to palpation present (GI) Auscultation: normal bowel sounds Other: Incision - CDI Extrem: General: normal to inspection, no pedal edema and no calf tenderness
[2022-04-16 08:38] LABS: Rapid Plasma Reagin Non-Reactive (NonReactive)
--- NOTE | 2022-04-16 09:17 | PC.NURSE ---
[id number] Introductions were made, then consulted with patient to assess needs related to . Mother led the conversation with her experience feeding her so far. Mother states she breastfed her infant at 0730 with no pain only tugging . history of 5 months with her first. Infant was taken to the nursery with primary RN for a blood sugar since mother forgot to call out before feeding. Dr. Cui called to prepare for a circumcision reported to the primary RN. Encouraged understanding of the benefits of skin to skin (unwrapping infant and placing vertically on her chest), responsive feeding and how to watch for early feeding signs, frequency of feeding on demand about every 8-12 times in 24 hours (every 2-3 hours), milk production, duration of feeding, signs of adequate intake/output and how to record on the feeding sheet. Mother voiced understanding of responsive feedings, stimulating with skin to skin, hand expressed colostrum, touch, talking to infant to encourage if it has been 2 -3 hours since the start of the last , to call if does not latch, for a latch assessment and/or there is discomfort with .
[2022-04-16] MEDS: DOCUSATE SODIUM 100 MG CAPSULE PO ×2 (09:52→15:39)
[2022-04-16] MEDS: MULTIVIT/MIN/PREN/FOL AC/IRON TABLET 1 TAB PO (09:53)
--- NOTE | 2022-04-16 10:18 | WPDANLDPN2 ---
Anes-Prog Note L&D Date/Time: 04/16/22 10:18 Comfortable throughout: labor and delivery Neuraxial method: epidural Epidural/Spinal procedure site: clean & non-tender Neuro status: Neuro function grossly intact. Cardiovascular status: normal Respiratory status: normal Airway patency: baseline Mental status: baseline Post-Op hydration status: normal Vital Signs: Last Vital Signs Temp 37.4 C 04/16/22 07:55 Pulse 95 04/16/22 07:55 Resp 18 04/16/22 07:55 BP 122/76 04/16/22 07:55 Pulse Ox 97 04/16/22 07:55 O2 Del Method Room Air 04/15/22 06:57 Pain score (VAS): 0/10 I/O: Intake & Output 04/15/22 04/16/22 04/16/22 23:59 07:59 15:59 Intake Total 1050 1050 Output Total 135 Balance 1050 915 Post-procedural complaints: none Patient feedback: Patient satisfied with anesthetic care.
--- NOTE | 2022-04-16 14:29 | PC.NURSE ---
[id number] Consulted with patient to assess needs related to . Mother led conversation with her experience with feeding baby so far. Mother works well with her infant with encouragement. Reviewed working with , breast, nipples and how to protect the nipples with an optimal deep latch, good positioning, and good hand washing. Mother has latched to the left breast with less than 90 degree latch and nipple visualize in 's mouth. Reviewed signs to watch look for to obtain an optimal latch. Encouraged understanding the benefits of skin to skin, responding to feeding cues, frequencies of feeding 8-12 times in 24 hours (approximately 2-3 hours), duration of feedings, milk production, intake/output feeding sheet and signs of adequate intake encouraging swallowing at the breast. Reviewed positioning and alignment, supporting breast, off-centered (asymmetrical latch) and leading with the chin with big open wide gape. latched optimally to the right breast in football position. Education given to mother of how to visualize suck/swallow ratios and drinking at the breast. was able to maintain latch without discomfort to mother. Nipple care reviewed with optimal latch and good positioning, comfort, healing with warm, wet washcloth to rinse breast, then leave open to air-dry, colostrum may be left on nipples to dry but have clean hands when touching the nipple/breast as needed. Resources used to facilitate learning were used from the visual handout/mom and baby guide. Mother voiced understanding of the education shared, calling for assistance if the does not latch or if there is discomfort with . Reported to the primary RN.
[2022-04-17] VITALS: BP 124/78; PULSE 91; RESP 18; TEMP 36.7
[2022-04-17] MEDS: ACETAMINOPHEN 325 MG TABLET 650 MG PO
[2022-04-17 04:53] LABS: Hematocrit 29.8 % (37.0-47.0); Hemoglobin 9.5 g/dL (12.0-15.0)
--- NOTE | 2022-04-17 07:34 | PM.OBPNVD ---
OB - PN: Subj Subjective Date/time seen: 04/17/22 07:34 - Patient resting comfortably in bed. Desires discharge today. OB - PN: Obj Data Labs CBC & Chem 7: 04/17/22 03:10 Labs: Laboratory Results - last 24 hr 04/15/22 04/17/22 06:47 03:10 Hgb 9.5 L Hct 29.8 L RPR Non-reactive OB - PN A/P Plan day: 2 Plan: routine care and discharge home Time Spent With Patient Time: Total time spent is greater than 50% in coordination of care (as documented) at patient's floor/unit and/or counseling patient: Review of Systems Review of Systems: All systems reviewed & are unremarkable except as noted in HPI and below Exam Narrative: Elective IOL Const: General: cooperative, healthy appearing and comfortable
--- NOTE | 2022-04-17 07:37 | PM.OBDSVD ---
DS: Admitting Diagnosis Discharge Date 04/17/22 Admitting Diagnosis Elective IOL OB - DS: Summary OB Procedures : None OB Procedures Intrapartum: Spontaneous Vag Delivery OB Procedures: : None Time Spent with Patient Time attestation: Total time spent providing and/or coordinating discharge services: DS: Data Data Completed and Pending Labs on day of discharge: Labs from last 24 hours 04/17/22 04/15/22 03:10 06:47 Hgb 9.5 L Hct 29.8 L RPR Non-reactive Discharge Plan Discharge Attending physician on discharge: Jean Cui Discharging Clinician: Lexie Romo Patient Disposition: Home, Self-Care Activity: pelvic rest Diet: regular Patient Instructions: Antibiotic Form Stand Alone Forms: General Discharge Information Follow-up/Referrals: Lexie Romo CNM [Certified Nurse [employer]] - 4 Weeks Discharge Medications: Continued PNV cmb#95-ferrous fumarate-FA [] 28 mg iron- 800 mcg Tablet 1 tablet PO DAILY Date of admission: 04/15/22 06:06 Primary Care Provider: PHYSICIAN,WATCH AND CLOCK MAKER AND REPAIRER Admitting Provider: Jean Cui Attending physician on admission: Jean Cui Condition: Stable
[2022-04-17] MEDS: IBUPROFEN 600 MG TABLET PO ×2 (08:37)
[2022-04-17] MEDS: MULTIVIT/MIN/PREN/FOL AC/IRON TABLET 1 TAB PO (08:37)
[2022-04-17 08:38] VITALS: BP 121/75; PULSE 83; RESP 17; TEMP 36.3; O2SAT 100
[2022-04-17] MEDS: POLYSACCHARIDE IRON COMPLEX 150 MG CAPSULE PO (08:38)
[2022-04-17] MEDS: DOCUSATE SODIUM 100 MG CAPSULE PO (08:38)
--- NOTE | 2022-04-17 13:58 | PC.NURSE ---
[id number] Mother led the conversation with her experience and plan to feed her so far and her ability to independently latch optimally without discomfort. Reminded parents to use good handwashing technique to prevent infection. Mother is feeding appropriately for growth of and understands stimulating to eat if needed. Infant has had appropriate feedings in the last 24 hours meets the outcomes for weight, output and jaundice at this time. Mother states she is confident to continue effectively her infant at home or when to call for assistance and denies any additional assistance or education at this time. Mother demonstrates knowledge and optimally latches infant to the left breast using football positioning. Reinforced understanding of milk production, transition of milk, signs of adequate intake, prevention/relief of engorgement, responsive after visualizing feeding cues, the different methods of stimulating to breastfeed 2-3 hours after the start of the last feeding, community resources, medication information reviewed per [employer] and when to call a provider using the resource of the mom and baby guide/[facility] website. Mother voiced understanding of the education shared. Reported to the primary RN.
[2022-04-18 11:23] VITALS: BP 142/80; PULSE 87; RESP 20; TEMP 36.9; O2SAT 100
== END 2022-04-17 12:07 | disposition home or self-care (01) | DRG 807 ==
LOC: ANHLDR 06:17 → ANHOB2 04-16 04:37
PROVIDERS: Advanced Practice Midwife; Admitting Provider Obstetrics & Gynecology; Visit Provider Obstetrics & Gynecology
DX: O99.824 Streptococcus B carrier state complicating childbirth (principal); Z37.0 Single live birth; O70.1 Second degree perineal laceration during delivery; Z3A.39 39 weeks gestation of pregnancy
CPT/HCPCS: 36415; 85014; 85018; 85025; 86592; 86850; 86900; 86901; A9270; J0290; J2405; J2590; J2795; J7120

== ENCOUNTER 2024-03-25 00:13 | Outpatient (CLI) | payer OTHER, SELFPAY ==
[2024-03-25 00:30] VITALS: BP 126/73; PULSE 100
[2024-03-25 00:45] VITALS: BP 121/71; PULSE 93
== END 2024-03-25 01:03 | disposition home or self-care (01) ==
LOC: ANHOBOP 00:18 → ANHOBPP 03-30 07:05
PROVIDERS: Visit Provider Obstetrics & Gynecology
DX: O41.8X90 Other specified disorders of amniotic fluid and membranes, unspecified trimester, not applicable or unspecified (principal); Z3A.00 Weeks of gestation of pregnancy not specified
CPT/HCPCS: 59025; 84112; 99199

== ENCOUNTER 2024-05-02 04:52 | Inpatient (IN) | payer OTHER, SELFPAY ==
[2024-05-02] VITALS (125 sets, daily range): BP systolic 90–145; BP diastolic 53–101; PULSE 63–178; RESP 16; TEMP 36.2–36.5; O2SAT 75–100; BMI 36.6
[2024-05-02 05:49] LABS: Basophils Absolute Auto 0.1 K/mm3 (0.0-0.1); Basophils Percent Auto 0.6 % (0.2-1.2); Eosinophils Absolute Auto 0.2 K/mm3 (0-0.3); Eosinophils Percent Auto 1.8 % (0-4.4); Hematocrit 34.2 % (37.0-47.0); Hemoglobin 11.3 g/dL (12.0-15.0); Immature Granulocyte Absolute 0.07 K/mm3 (0.00-0.031); Immature Granulocyte Percent A 0.8 % (0-0.5); Lymphocytes Absolute Auto 1.94 K/mm3 (0.9-3.2); Lymphocytes Percent Auto 22.7 % (18.3-44.2); Mean Corpuscular Hemoglobin 26.9 pg (26-34); Mean Corpuscular Volume 81.4 fl (80-100); Mean Platelet Volume 10.6 fl (7.4-10.4); Monocytes Absolute Auto 0.6 K/mm3 (0.1-0.6); Monocytes Percent Auto 7.3 % (2.6-8.5); Neutrophils Absolute Auto 5.7 K/mm3 (1.3-6.7); Neutrophils Percent Auto 66.8 % (45.5-73.1); Platelet Count Result 166 k/mm3 (150-375); White Blood Count 8.5 K/mm3 (4.5-10.0)
[2024-05-02] MEDS: OXYTOCIN 30 UNITS/NS 500 ML 30 UNITS/500 ML BAG IV CONT (05:49)
[2024-05-02] MEDS: LACTATED RINGERS 1,000 ML 125 ML IV CONT ×3 (05:50→17:19)
[2024-05-02] MEDS: AMPICILLIN 2 GM/NS 100 ML 2 GM/100 ML BAG IVPB (05:51)
[2024-05-02 06:45] LABS: HIV 1/2 Ab P24 Ag Result Negative (Negative)
--- NOTE | 2024-05-02 07:23 | WPDOBADMIT ---
Obstetrics - Admit Note Admission Note: record reviewed. No pertinent additions to the history and/or any subsequent changes in the physical findings that are not consistent with the expected course of the were found. Additions to the history and/or subsequent changes in the physical findings follow. None. Admit for IOL, rubella non-immune, GBS positive, AROM moderate amount of clear, odorless fluid, anticipate vaginal delivery
[2024-05-02] MEDS: AMPICILLIN 1 GM/NS 50 ML 1 GM/50 ML BAG IVPB ×3 (09:55→17:55)
--- NOTE | 2024-05-02 12:44 | WPDANESEPP ---
Anes - Eval Pre Procedure Procedure: labor Epidural Date/Time: 05/02/24 12:44 Surgeon: See Preop Diagnosis: Pain during labor Pre Op Diagnosis: IOL Patient Data Age: 28 Gender: F Height: 1.65 m Weight: 99.8 kg Last Vital Signs Pulse 96 05/02/24 12:30 BP 132/77 05/02/24 12:30 Pulse Ox 99 05/02/24 12:41 Allergies Allergy/AdvReac Type Severity Reaction Status Date / Time Sulfa (Sulfonamide Allergy Unknown Verified 05/02/24 05:36 Antibiotics) Home Medications Medication Instructions Recorded Confirmed Type vit no.95-ferrous 1 tablet PO DAILY 08/03/20 04/13/24 History fumarate 28 mg-folic acid 800 mcg tablet () Laboratory Tests 05/02/24 05:16 WBC 8.5 K/mm3 (4.5-10.0) RBC 4.20 M/mm3 (4.2-5.4) Hgb 11.3 L g/dL (12.0-15.0) Hct 34.2 L % (37.0-47.0) MCV 81.4 fl (80-100) MCH 26.9 pg (26-34) MCHC 33.0 g/dl (32-36) RDW 14.0 % (11.5-14.5) Plt Count 166 k/mm3 (150-375) MPV 10.6 H fl (7.4-10.4) Immature Gran % (Auto) 0.8 H % (0-0.5) Neut % (Auto) 66.8 % (45.5-73.1) Lymph % (Auto) 22.7 % (18.3-44.2) Hodgeman % (Auto) 7.3 % (2.6-8.5) Eos % (Auto) 1.8 % (0-4.4) Baso % (Auto) 0.6 % (0.2-1.2) Lymph # (Auto) 1.94 K/mm3 (0.9-3.2) Hodgeman # (Auto) 0.6 K/mm3 (0.1-0.6) Eos # (Auto) 0.2 K/mm3 (0-0.3) Baso # (Auto) 0.1 K/mm3 (0.0-0.1) Abs Immat Gran (auto) 0.07 H K/mm3 (0.00-0.031) Absolute Neuts (auto) 5.7 K/mm3 (1.3-6.7) Absolute Nucleated RBC 0.000 K/mm3 (0.0-0.012) Nucleated RBC % 0.0 % (0.0-0.2) RPR Pending HIV 1&2 Ab/P24 Ag 4thGn Negative (Negative) Blood Type O Positive Antibody Screen Negative Patient hx anesthesia problems: none Family hx anesthesia problems: none Results Review: All pre-operative results and documents have been reviewed as part of the pre-operative evaluation. [facility] Family History Family History Mother Hypertension Sibling Brain aneurysm Social History Social History Smoking status: Former smoker Smokeless tobacco user: other Second hand tobacco smoke exposure: No Alcohol intake: former Substance use: former Substance use type: marijuana Do You Feel Safe in your Home?: Yes Lack of Transportation: No Lack of Food: Never True Current Housing: I Have Housing Concerned About Future Housing: No Difficulty Paying Gas/Electric Bills: No Difficulty Paying for Meds: No Currently Unemployed: No Education: High School Diploma/GED Difficulty w/ Childcare or Family Care: No Gender identity (if verbalized by the patient): Female Spiritual care concerns: No Exam Day of Procedure 05/02/24 12:44 Patient weight: morbidly obese Heart: regular rate and rhythm Lungs: normal air movement Airway: Mallampati scale class II Neurological: alert and oriented
[2024-05-02 14:06] LABS: Rapid Plasma Reagin Non-Reactive (NonReactive)
[2024-05-02] MEDS: ONDANSETRON INJ 4 MG/2 ML VIAL IV PUSH ×2 (15:18→22:16)
[2024-05-02] MEDS: miSOPROStol 200 MCG TABLET 1000 MCG RECTAL (19:07)
--- NOTE | 2024-05-02 19:14 | PM.OBPRVD ---
OB - Vaginal Delivery Note Procedure Delivery date: 05/02/24 Induction method: AROM and Per Pitocin Protocol Delivery monitor: External FHT and Internal Uterine Route of delivery: Episiotomy description: None Laceration Description: Perineal - 1st Degree Specimen: No Quantitative Blood Loss (ml): 225 Anesthesia type: Epidural Disposition: Floor Complications: No immediate complications Narrative: mother and baby in stable condition Baby Date of : 05/02/24 Time of : 18:34 Weeks of gestation at delivery: 39 gender: Female Weight (pounds): 7 Weight (ounces): 14 presentation: vertex position: Left Occiput Anterior Placenta delivery description: Spontaneous Cord Vessel Description: Nuchal Cord (x1), Delayed Cord Clamping and Around Extremity (x2) score one minute: 7 score five minutes: 9
[2024-05-02] MEDS: OXYTOCIN 30 UNITS/NS 500 ML 30 UNITS/500 ML BAG 125 UNITS IV CONT (19:29)
[2024-05-02] MEDS: ACETAMINOPHEN 325 MG TABLET 650 MG PO (23:59)
[2024-05-03 04:00] VITALS: BP 124/78; PULSE 78; RESP 16; TEMP 36.4; O2SAT 100
[2024-05-03] MEDS: IBUPROFEN 600 MG TABLET PO ×2 (04:06→15:49)
[2024-05-03 04:20] LABS: Hemoglobin 10.7 g/dL (12.0-15.0)
--- NOTE | 2024-05-03 07:17 | WPDANLDPN2 ---
Anes-Prog Note L&D Date/Time: 05/03/24 07:17 Neuro status: Neuro function grossly intact. Cardiovascular status: normal Respiratory status: normal Airway patency: baseline Mental status: baseline Post-Op hydration status: normal Vital Signs: Last Vital Signs Temp 97.5 F L 05/03/24 04:00 Pulse 78 05/03/24 04:00 Resp 16 05/03/24 04:00 BP 124/78 05/03/24 04:00 Pulse Ox 100 05/03/24 04:00 O2 Del Method Room Air 05/02/24 22:18 Pain score (VAS): 1 I/O: Intake & Output 05/02/24 05/02/24 05/03/24 15:59 23:59 07:59 Intake Total 1100 591.7 Output Total 225 Balance 1100 366.7 Post-procedural complaints: none Patient feedback: Patient satisfied with anesthetic care.
[2024-05-03 07:40] VITALS: BP 118/68; PULSE 74; RESP 18; TEMP 37.1; O2SAT 99
--- NOTE | 2024-05-03 09:16 | P.PNOB_ITS ---
OB - PN: Subj Subjective Date/time seen: 05/03/24 09:16 Interval history: PPD#1 Doing well, pain controlled , no issues Tolerating regular diet Ready for discharge home today OB - PN: Obj Data Labs 05/03/24 04:12 Labs: Laboratory Results - last 24 hr 05/02/24 05/03/24 05:16 04:12 Hgb 10.7 L Hct 32.0 L RPR Non-reactive OB - PN A/P Assessment and Plan (1) (spontaneous vaginal delivery): Code(s): O80 - Encounter for full-term uncomplicated delivery Status: Acute Plan day: 2 Plan: routine care, discharge home and follow up 6 weeks Time Spent With Patient Time: Total time spent is greater than 50% in coordination of care (as documented) at patient's floor/unit and/or counseling patient: Review of Systems Review of Systems: All systems reviewed & are unremarkable except as noted in HPI and below Exam Const: General: comfortable and no acute distress Orientation/conscious ness: patient oriented x3 Resp: Effort & Inspection: normal respiratory effort
--- NOTE | 2024-05-03 09:44 | PC.NURSE ---
[id number]. Mother verbalizes she is able to independently latch infant with appropriate positioning and alignment. She denies any nipple discomfort and is responsively . She explains she is able to delatch with the appropriate technique. She also explains she used the nipple shield with her last baby for a while but hopes not to have to use it with this baby. is currently meeting outcomes for weight, output, jaundice, blood sugar and feeding frequencies of 8-12 times in 24 hours. Mother declines any additional assistance or education at this time. Mother is encouraged to call for assistance if her infant doesn?t latch, pain with latching, questions or concerns. Mother voiced understanding of information shared along with the mom/baby guide for an additional resource. Reported to the Primary RN.
[2024-05-03] MEDS: MULTIVIT/MIN/PREN/FOL AC/IRON TABLET 1 TAB PO (10:17)
[2024-05-03] MEDS: ACETAMINOPHEN 325 MG TABLET 650 MG PO ×2 (10:17→22:06)
--- NOTE | 2024-05-03 10:18 | P.DS_ITS ---
DS: Admitting Diagnosis Discharge Date 05/03/24 Admitting Diagnosis induction of labor DS: Discharge Diagnosis Discharge Diagnosis (1) (spontaneous vaginal delivery): Code(s): O80 - Encounter for full-term uncomplicated delivery Status: Acute OB - DS: Summary OB Procedures : None OB Procedures Intrapartum: Spontaneous Vag Delivery OB Procedures: : None Peripartum Data Laceration Description: Perineal - 1st Degree Episiotomy description: None Time Spent with Patient Time attestation: Total time spent providing and/or coordinating discharge services: DS: Data Data Completed and Pending Labs on day of discharge: Labs from last 24 hours 05/03/24 05/02/24 04:12 05:16 Hgb 10.7 L Hct 32.0 L RPR Non-reactive Discharge Plan Discharge Attending physician on discharge: Rommel Harrison Discharging Clinician: Rommel Harrison Patient Disposition: Home, Self-Care Activity: may shower, as tolerated and pelvic rest Diet: regular Patient Instructions: Antibiotic Form Stand Alone Forms: General Discharge Information Follow-up/Referrals: Lexie Romo CNM [Certified Nurse Lockstitch Pocket Setter] - 5 Weeks Discharge Medications: New docusate sodium 100 mg Capsule 100 mg PO BID PRN (Reason: Constipation) Qty: 60 0RF ibuprofen 600 mg Tablet 600 mg PO Q6H PRN (Reason: Cramping) Qty: 30 0RF Continued PNV cmb#95-ferrous fumarate-FA [] 28 mg iron- 800 mcg Tablet 1 tablet PO DAILY Date of admission: 05/02/24 04:52 Primary Care Provider: UNKNOWN,DOCTOR Admitting Provider: Will Cui Attending physician on admission: Will Cui Condition: Stable
[2024-05-03] MEDS: BENZOCAINE 20% AER SPR (*SP) 56 GM CAN 1 SPRAY TOPICAL (10:21)
[2024-05-03] MEDS: WITCH HAZEL 40 PADS 1 PAD TOPICAL (10:21)
[2024-05-03 12:11] VITALS: BP 131/58; PULSE 85; RESP 16; TEMP 36.5; O2SAT 98
[2024-05-03] MEDS: TETANUS,DIPHTHERIA,AC PERTUSSIS ADULT (0.5 ML) BOOSTRIX IM (15:47)
[2024-05-03 16:15] VITALS: BP 117/73; PULSE 90; RESP 18; TEMP 36.2; O2SAT 97
[2024-05-03] MEDS: MEASLES,MUMPS,RUBELLA VACCINE 0.5 ML VIAL SUB-Q (22:40)
[2024-05-06 11:23] VITALS: BP 124/86; PULSE 102; RESP 18; TEMP 37; O2SAT 98
== END 2024-05-03 22:46 | disposition home or self-care (01) | DRG 807 ==
LOC: ANHLDR 06:21 → ANHOB2 05-03 09:18 → ANHLDR 05-04 09:24 → ANHOB2 05-04 09:24
PROVIDERS: Admitting Provider Obstetrics & Gynecology; Referring Provider Advanced Practice Midwife; Visit Provider Obstetrics & Gynecology
DX: O99.824 Streptococcus B carrier state complicating childbirth (principal); Z37.0 Single live birth; Z3A.39 39 weeks gestation of pregnancy; O70.0 First degree perineal laceration during delivery; O69.81X0 Labor and delivery complicated by cord around neck, without compression, not applicable or unspecified
CPT/HCPCS: 36415; 85014; 85018; 85025; 86592; 86703; 86850; 86900; 86901; 90710; 90715; A9270; G0432; J0290; J2405; J2590; J2795; J7120